=== PATIENT | female | born 1990 | race Caucasian/White ===

== ENCOUNTER → 2016-03-16 14:30 | Outpatient (CLI) | payer MEDICAID ==
[2015-04-19 05:14] VITALS: BMI 30.6
[~2016-03-16 14:30] MED LIST: BUPRENORPHIN-N1 EACH SL; IBUPROFEN600 MG PO; PERCOCET 10/3251 TA1 PO
[2016-03-16 15:26] LABS: UDS - AMPHET NEGATIVE QUAL (NEGATIVE); UDS - BARB NEGATIVE QUAL (NEGATIVE); UDS - BENZO NEGATIVE QUAL (NEGATIVE); UDS - COCAINE NEGATIVE QUAL (NEGATIVE); UDS - METH NEGATIVE QUAL (NEGATIVE); UDS - OPIATE NEGATIVE QUAL (NEGATIVE); UDS - PCP NEGATIVE QUAL (NEGATIVE); UDS - THC NEGATIVE QUAL (NEGATIVE)
== END | disposition home or self-care (01) ==
LOC: D.LAB 14:30
PROVIDERS: Emergency Medicine
DX: F11.20 Opioid dependence, uncomplicated (principal)

== ENCOUNTER → 2016-12-28 12:21 | Outpatient (CLI) | payer MEDICAID ==
[2015-04-19 05:14] VITALS: BMI 30.6
== END | disposition home or self-care (01) ==
LOC: D.LAB 12:21
DX: F11.20 Opioid dependence, uncomplicated (principal)